=== PATIENT | female | born 1985 | race Caucasian/White ===

== ENCOUNTER 2019-02-12 18:45 | Emergency (ER) | payer OTHER ==
[~2019-02-12] VITALS: Ht 162.6 cm; Wt 62.1 kg
[2019-02-12] MEDS ORDERED: PROTONIX40 MG (19:10)
== END 2019-02-13 00:09 | disposition home or self-care (01) ==
LOC: ER 18:45
DX: K29.70 Gastritis, unspecified, without bleeding (principal)

== ENCOUNTER 2022-02-09 16:29 | Outpatient (CLI) | payer OTHER ==
[~2022-02-09 16:29] MED LIST: PROTONIX40 MG
== END 2022-02-09 17:15 | disposition home or self-care (01) ==
LOC: NST 16:29
PROVIDERS: ATTEND Obstetrics & Gynecology
DX: Z34.83 Encounter for supervision of other normal pregnancy, third trimester (principal)

== ENCOUNTER 2022-03-09 09:41 | Outpatient (CLI) | payer OTHER | END 2022-03-09 10:45 | disposition home or self-care (01) | LOC: NST 09:41 | PROVIDERS: ATTEND Obstetrics & Gynecology | DX: Z34.83 Encounter for supervision of other normal pregnancy, third trimester (principal) ==

== ENCOUNTER 2022-03-12 03:44 | Inpatient (IN) | payer OTHER ==
[~2022-03-12] VITALS: Ht 165.1 cm; Wt 3.6 kg
[2022-03-13] MEDS ORDERED: FAMOTIDINE40 MG (08:42)
[2022-03-15] MEDS ORDERED: OXYC1TAB9 PO (10:56)
== END 2022-03-15 11:30 | disposition home or self-care (01) | DRG 788 ==
LOC: LDR 03:44 → OB/GYN 03:44 → LDR 11:01 → O/R 18:23 → OB/GYN 03-13 00:29
PROVIDERS: ADMIT Obstetrics & Gynecology; ATTEND Obstetrics & Gynecology
PROC: 4A1HXCZ Monitoring of Products of Conception, Cardiac Rate, External Approach (ICD-10-PCS; 2022-03-12)
PROC: 10D00Z1 Extraction of Products of Conception, Low, Open Approach (ICD-10-PCS; principal; 2022-03-12 22:15)
DX: O62.1 Secondary uterine inertia (principal); Z3A.39 39 weeks gestation of pregnancy; Z37.0 Single live birth; Z20.822 Contact with and (suspected) exposure to COVID-19